=== PATIENT | male | born 1995 | race Caucasian/White ===

== ENCOUNTER 2018-06-04 03:33 | Emergency (ER) | payer BC ==
[~2018-06-04] VITALS: Ht 188 cm; Wt 87.1 kg
[2018-06-04 03:40] VITALS: Ht 188 cm; Wt 87.1 kg
[2018-06-04 04:58] VITALS: BP 115/77
== END 2018-06-04 04:58 | disposition home or self-care (01) ==
LOC: ED 03:33
DX: T78.40XA Allergy, unspecified, initial encounter (principal); J45.909 Unspecified asthma, uncomplicated; Z88.0 Allergy status to penicillin; X58.XXXA Exposure to other specified factors, initial encounter
CPT/HCPCS: J0171; J7512